=== PATIENT | male | born 1930 | race Caucasian/White ===

== ENCOUNTER → 2020-04-07 | Outpatient (CLI) | payer MEDICARE ==
[~2020-04-07] MED LIST: ACET325 PO; ATEN25 PO; ATEN50 PO; BISA10S PR; CEFD300 PO; CHOL10002; Coumadin5 MG; DAILY MULTIPLE1 EACH; ELIQUIS2.5 MG PO; HYDACE10B PO; LISI20 PO; LORA10ER PO; METF500 PO; METF500C; MULVITMIND PO; NEBI10; Salmon Oil 1,01 EACH; Salmon Oil 1,01 EACH PO; Saw Palmetto80 MG; TAMS.4ER PO
[2020-04-07 12:28] LABS: BASOPHILS ABSOLUTE AUTO 0.05 K/mm3 (0.00-0.23); BASOPHILS PERCENT AUTO 1 % (0-2); EOSINOPHILS PERCENT AUTO 3 % (0-6); Hematocrit 47.3 % (37.0-53.0); Hemoglobin 14.4 g/dL (13.5-17.5); IMMATURE GRAN ABSOLUTE AUTO 0.01 K/mm3 (0.00-0.10); IMMATURE GRAN PERCENT AUTO 0 % (0-1); LYMPHOCYTES ABSOLUTE AUTO 2.81 K/mm3 (0.84-5.20); LYMPHOCYTES PERCENT AUTO 41 % (21-46); MONOCYTES ABSOLUTE AUTO 0.67 K/mm3 (0.16-1.47); MONOCYTES PERCENT AUTO 10 % (4-13); Mean Corpuscular HGB Conc 30.4 g/dL (31.5-36.5); Mean Corpuscular Volume 92 fL (80-100); Mean Platelet Volume 11.1 fL (9.1-12.4); NEUTROPHILS ABSOLUTE AUTO 3.12 K/mm3 (1.96-9.15); NEUTROPHILS PERCENT AUTO 46 % (41-73); Platelet Count 150 K/mm3 (150-400); RDW Coefficient Variation 13.4 % (11.7-14.2); RDW Standard Deviation 45.5 fL (35.1-46.3); Red Blood Cell Count 5.14 M/mm3 (4.30-5.90); White Blood Cell Count 6.86 K/mm3 (4.00-11.30)
[2020-04-07 12:37] LABS: Albumin, Blood 3.8 g/dL (3.4-5.0); Albumin/Globulin Ratio 0.8 (0.8-1.8); Bilirubin, Total 1.1 mg/dL (0.1-1.0); Creatinine, Blood 1.87 mg/dL (0.60-1.20); Globulin, Blood 4.7 g/dL (2.2-4.0); Potassium, Blood 5.4 mmol/L (3.5-5.5); Total Protein, Blood 8.5 g/dL (6.4-8.2)
== END | disposition home or self-care (01) ==
LOC: LAB SHORT 12:22 → LAB 12:22
PROVIDERS: Chiropractor
DX: K62.5 Hemorrhage of anus and rectum (principal)
CPT/HCPCS: 80053; 85025

== ENCOUNTER 2020-07-23 11:09 | Inpatient (IN) | payer MEDICARE ==
[~2020-07-23] VITALS: Ht 170.2 cm; Wt 98.3 kg
[~2020-07-23 11:09] MED LIST changes: -ACET325 PO; -ATEN50 PO; -BISA10S PR; -CEFD300 PO; -HYDACE10B PO; -LISI20 PO; -LORA10ER PO; -TAMS.4ER PO
[2020-07-23 11:42] LABS: BASOPHILS ABSOLUTE AUTO 0.06 K/mm3 (0.00-0.23); BASOPHILS PERCENT AUTO 1 % (0-2); EOSINOPHILS ABSOLUTE AUTO 0.19 K/mm3 (0.00-0.68); EOSINOPHILS PERCENT AUTO 2 % (0-6); Hematocrit 42.5 % (37.0-53.0); Hemoglobin 12.7 g/dL (13.5-17.5); IMMATURE GRAN ABSOLUTE AUTO 0.02 K/mm3 (0.00-0.10); IMMATURE GRAN PERCENT AUTO 0 % (0-1); LYMPHOCYTES ABSOLUTE AUTO 4.85 K/mm3 (0.84-5.20); LYMPHOCYTES PERCENT AUTO 54 % (21-46); MONOCYTES ABSOLUTE AUTO 0.82 K/mm3 (0.16-1.47); MONOCYTES PERCENT AUTO 9 % (4-13); Mean Corpuscular HGB 28.1 pg (26.0-34.0); Mean Corpuscular HGB Conc 29.9 g/dL (31.5-36.5); Mean Corpuscular Volume 94 fL (80-100); NEUTROPHILS ABSOLUTE AUTO 3.12 K/mm3 (1.96-9.15); NEUTROPHILS PERCENT AUTO 34 % (41-73); Platelet Count 152 K/mm3 (150-400); RDW Coefficient Variation 13.2 % (11.7-14.2); RDW Standard Deviation 45.9 fL (35.1-46.3); Red Blood Cell Count 4.52 M/mm3 (4.30-5.90); White Blood Cell Count 9.06 K/mm3 (4.00-11.30)
[2020-07-23 11:48] LABS: Alanine Aminotransfer (ALT/SGP 19 U/L (12-78); Albumin, Blood 3.1 g/dL (3.4-5.0); Albumin/Globulin Ratio 0.7 (0.8-1.8); Alk Phos 94 U/L (50-136); Anion Gap 2 mmol/L (6-16); Aspartate Aminotrans (AST/SGOT 15 U/L (12-37); Bilirubin, Total 0.5 mg/dL (0.1-1.0); Blood Urea Nitrogen 28 mg/dL (8-24); Bun/Creatinine Ratio 15.5 (12.0-20.0); CO2, Blood 29 mmol/L (21-32); Calcium, Blood 8.3 mg/dL (8.5-10.1); Chloride, Blood 112 mmol/L (98-108); Creatinine, Blood 1.81 mg/dL (0.60-1.20); Globulin, Blood 4.3 g/dL (2.2-4.0); Glomerular Filtration Rate 38 (60-); Glucose, Blood 97 mg/dL (70-99); Potassium, Blood 5.3 mmol/L (3.5-5.5); Sodium, Blood 143 mmol/L (136-145); Total Protein, Blood 7.4 g/dL (6.4-8.2); Troponin I <0.015 ng/mL (0.000-0.040)
[2020-07-23] MEDS ORDERED: LISI20 PO (12:18)
[2020-07-23] MEDS ORDERED: ATEN25 PO (12:19)
[2020-07-23] MEDS ORDERED: LORA10ER PO (12:19)
[2020-07-23] MEDS ORDERED: ATEN50 PO (14:07)
--- NOTE | 2020-07-23 19:22 | NUR ---
ADMIT NOTE PT NEW ADMIT TO UNIT ABOUT 1700 FROM ER. LEFT HIP FX FROM [facility] AT HOME. PATIENT ALERT AND SOMEWHAT CONFUSED ABOUT SITUATION BUT IS COOPERATIVE AND PLEASANT. DAUGHTER, AUBREY, PRESENT AT ADMIT TO PROVIDE MEDICAL HISTORY. LEFT HIP IS PAINFUL AND PATIENT RESTING IN BED. TOLERATING SIPS OF CLEARS AT THIS TIME. PLAN FOR SURGICAL REPAIR 07/24 OR 07/25. HX OF STROKE, TIA, AND AFIB. [place]. REPORT GIVEN TO LIFESTYLE COORDINATOR RN.
--- NOTE | 2020-07-23 20:33 | NUR ---
PAIN PT GIVEN 0.5MG DILAUDID FOR PAIN PRIOR TO REPOSITIONING AND APPLYING ATTENDS. PT BECAME IRRITATED W/ STAFF INSISTING THAT WE LEAVE HIM ALONE. PT EDUCATED ON IMPORTANCE OF KEEPING SKIN C/D/I AND FREE OF ANY STOOL/URINE. PT CONTINUED TO REFUSE CARE. PT EDUCATION REINFORCED AND PT CLEANED UP W/ DRY ATTENDS NOW IN PLACE. PT APPEARED TO BE COMFORTABLE WHEN FINISHED, BED IN LOW POSITION, ALARM ON FOR SAFETY. PT STATED HE WAS FINE R/T CURRENT PAIN AT REASSESSMENT. WILL CTM AND REINFORCE EDUCATION ON SKIN BREAKDOWN.
[2020-07-24 04:56] LABS: BASOPHILS ABSOLUTE AUTO 0.06 K/mm3 (0.00-0.23); BASOPHILS PERCENT AUTO 1 % (0-2); EOSINOPHILS PERCENT AUTO 1 % (0-6); Hemoglobin 13.5 g/dL (13.5-17.5); IMMATURE GRAN ABSOLUTE AUTO 0.04 K/mm3 (0.00-0.10); IMMATURE GRAN PERCENT AUTO 0 % (0-1); LYMPHOCYTES ABSOLUTE AUTO 1.69 K/mm3 (0.84-5.20); LYMPHOCYTES PERCENT AUTO 17 % (21-46); MONOCYTES ABSOLUTE AUTO 1.44 K/mm3 (0.16-1.47); MONOCYTES PERCENT AUTO 14 % (4-13); Mean Corpuscular HGB 28.3 pg (26.0-34.0); Mean Corpuscular Volume 94 fL (80-100); Mean Platelet Volume 10.7 fL (9.1-12.4); NEUTROPHILS PERCENT AUTO 67 % (41-73); Platelet Count 145 K/mm3 (150-400); RDW Coefficient Variation 13.4 % (11.7-14.2); RDW Standard Deviation 46.9 fL (35.1-46.3); Red Blood Cell Count 4.77 M/mm3 (4.30-5.90); White Blood Cell Count 10.23 K/mm3 (4.00-11.30)
[2020-07-24 05:16] LABS: Bun/Creatinine Ratio 15.8 (12.0-20.0); Calcium, Blood 8.5 mg/dL (8.5-10.1); Creatinine, Blood 1.9 mg/dL (0.60-1.20); Potassium, Blood 5.5 mmol/L (3.5-5.5)
--- NOTE | 2020-07-24 05:46 | NUR ---
SHIFT SUMMARY S/P L HIP FX, ALERT AND PLEASANTLY CONFUSED THOUGH IS RESISTANT TO CARE THAT INVOLVES ANY REPOSITIONING, REPEATED EDUCATION GIVEN ON THE IMPORTANCE OF KEEPING SKIN C/D/I AND CLEAR OF ANY URINE/STOOL, PAIN MANAGED PER EMAR, CARDIAC DIET ORDERED THOUGH PT HAS NOT HAD ANY INTAKE TONIGHT AND HAD POOR INTAKE DURING DAY SHIFT YESTERDAY PER REPORT. ON BEDREST PENDING SURGERY, NO ACUTE EVENTS THIS SHIFT. CALL LIGHT IN REACH, WILL CTM AND REPORT TO DAY RN.
[2020-07-24 09:16] LABS: Source, Urine Catheter
[2020-07-24 09:27] LABS: Appearance, Urine Clear (Clear); Bilirubin, Urine Neg (Neg); Blood, Urine 1+ (Neg); Color, Urine Yellow (P-Yellow); Glucose Qualitative, Urine Neg (Neg); Ketones, Urine Neg (Neg); Leukocyte Esterase, Urine Neg (Neg); Nitrite, Urine Neg (Neg); Protein, Urine Neg (Neg); Specific Gravity, Urine 1.015 (1.003-1.022); Urobilinogen, Urine NORM (Normal)
[2020-07-24 09:36] LABS: Bacteria Not Seen /hpf; Squamous Epithelial Cells Not Seen /hpf (Few); White Blood Cells, Urine 0-2 /hpf (0-5)
--- NOTE | 2020-07-24 18:08 | NUR ---
PT HAS BEEN STABLE THIS SHIFT. BP HIGH AT TIMES, RESTARTED ON HOME MED. DAUGHTER HAS BEEN AT BEDSIDE. PT CONFUSED. PLAN FOR SURGERY TOMORROW. NPO AFTER MIDNIGHT. CRANDALL PLACED THIS AM. UA SENT, NO CULTURE INDICATED. PT DRINKING FLUIDS WELL. PAIN CONTROLLED WITH PRN MEDS. PT HAS POOR APPETITE. PT ON 3L O2. CT AND XRAY ORDERED FOR AM. DAUGHTER WORKING ON GETTING PT COVID VACCINE CARD.
--- NOTE | 2020-07-25 03:28 | NUR ---
PT CONFUSED AT BASELINED. VSS ON 3L O2. PAIN MANAGED WELL W. IV DILAUDID. CRANDALL IN PLACE AND PATENT. REPOSTIONED Q2HR. NPO AT MIDNIGHT . PT FULLY VACCINATED, PHOTOCOPY OF VACCINATION CARD IN CHART. SLEEPING B/W CARE.
--- NOTE | 2020-07-25 09:34 | NUR ---
PT LEFT FOR PROCEDURE WITH DAY SURGERY RN, DTR AT BEDSIDE TO SIGN CONSENT. PT LEFT ON 3L OXYGEN VIA NC.
--- NOTE | 2020-07-25 10:46 | NUR ---
07/25/20 Nicola6 Kelli Mejia PT ENTERED OR WITH CRANDALL CATHETER
--- NOTE | 2020-07-25 13:06 | NUR ---
COUGHED AND WIGGLED TOES WHEN ASKED TO . PULLS AT GOWN, BLANKETS LINES . REORIENT HIM TO PLACE AND THAT HE BROKE HIS HIP AND IS AT HOSP HE SAYS " OH" AND THEN ASKS ME AGAIN SAME QUESTION . BIOX ON 10 L OXIMIZER GOES BETWEEN 88 TO 92 % HOSPITALIST AND DR REED AWARE NO NEW ORDER AT THIS TIME. NO ACUTE DISTRESS RESP E/U PLEASANT
--- NOTE | 2020-07-25 13:35 | NUR ---
SPOKE WITH NURSING PLUMBING HARDWARE ASSEMBLER ABOUT HIGHER LEVEL OF CARE BED DR REED HAS REQUESTED . WE HAVE NOTIFIED HOSPITALIST AND HE IS AWARE TO COME TO PACU TO SEE PT
--- NOTE | 2020-07-25 14:09 | NUR ---
REPORT GIVEN TO MARQUITA IN PCU. BELONGINGS SENT TO UNIT. INTRODUCED MARQUITA TO PT'S DAUGHTER AUBREY.
--- NOTE | 2020-07-25 15:23 | NUR ---
TRANSFER FROM PACU/SURGICAL PT WAS TRANSFERRED FROM PACU AND SURGICAL UNIT AFTER HAVING A HIP FX REPAIR. PT HAD INCREASED O2 NEEDS AFTER ANETHESIA. PT CAME TO PCU ON 10L VIA OXYMIZER BUT HAS SINCE BEEN TITRATED TO 9L. PT HAS AQUACEL DRESSING IN PLACE ON THE LEFT HIP, IT IS C/D/I. PT REPORTS VERY MILD PAIN AT THIS TIME. PT HAS CRANDALL PATENT AND DRAINING. PT IS VISITING WITH HIS FAMILY CURRENTLY. VS STABLE
--- NOTE | 2020-07-25 18:05 | NUR ---
SHIFT SUMMARY PT ARRIVED TO PCU FOLLOWING A HIP FX REPAIR. PT IS CONFUSED, WHICH IS HIS BASELINE. PT CAME TOP PCU DUE TO INCREASED O2 REQUIREMENT; PT HAS BEEN TITRATED DOWN AND IS NOW ON 4L VIA OXIMYZER. PT REPORTED PAIN IN THE LEFT HIP AND WAS MEDICATED PER EMAR AND ICE WAS APPLIED. PT IS RESTING IN BED AT THIS TIME
[2020-07-26 04:16] LABS: BASOPHILS ABSOLUTE AUTO 0.01 K/mm3 (0.00-0.23); BASOPHILS PERCENT AUTO 0 % (0-2); EOSINOPHILS PERCENT AUTO 0 % (0-6); Hematocrit 32.9 % (37.0-53.0); Hemoglobin 9.8 g/dL (13.5-17.5); IMMATURE GRAN ABSOLUTE AUTO 0.06 K/mm3 (0.00-0.10); IMMATURE GRAN PERCENT AUTO 1 % (0-1); LYMPHOCYTES ABSOLUTE AUTO 0.76 K/mm3 (0.84-5.20); LYMPHOCYTES PERCENT AUTO 6 % (21-46); MONOCYTES ABSOLUTE AUTO 0.84 K/mm3 (0.16-1.47); MONOCYTES PERCENT AUTO 7 % (4-13); Mean Corpuscular HGB 27.9 pg (26.0-34.0); Mean Corpuscular HGB Conc 29.8 g/dL (31.5-36.5); Mean Corpuscular Volume 94 fL (80-100); Mean Platelet Volume 10.9 fL (9.1-12.4); NEUTROPHILS ABSOLUTE AUTO 10.32 K/mm3 (1.96-9.15); NEUTROPHILS PERCENT AUTO 86 % (41-73); Platelet Count 84 K/mm3 (150-400); RDW Coefficient Variation 13.2 % (11.7-14.2); RDW Standard Deviation 45.1 fL (35.1-46.3); Red Blood Cell Count 3.51 M/mm3 (4.30-5.90); White Blood Cell Count 11.99 K/mm3 (4.00-11.30)
--- NOTE | 2020-07-26 05:38 | NUR ---
SHIFT SUMMARY PATIENT IS A PLESANTLY CONFUSED MAN WHO IS [place]. A&OX2-3. FOLLOWS COMMANDS. PAIN TO LEFT HIP WITH MOVEMENT BUT OTHERWISE TOLERABLE. GOOD SENSATION, PULSE, COLOR AND MOVEMENT TO BLE. SITE TO LEFT HIP C/D/I. ATTEMPTED Q2H TURNS BUT PATIENT WOULD SCREAM IN PAIN SO OPTED FOR TILTING. VSS. AFIB IN 60'S ON THE MONITOR ALL SHIFT. NO CP. WEANED O2 TO 1L OXYMIZER. NO SOB. CRANDALL IN PLACE DRAINING TO GRAVITY. NO CONCERNS AT THIS TIME. WILL CONTINUE TO MONITOR UNTIL REPORT GIVEN TO HENRI BENITEZ.
--- NOTE | 2020-07-26 11:02 | NUR ---
CRANDALL DC'D TODAY AT APPROXIMATELY 1050. PT TOLERATED WELL, 16ML NS REMOVED FROM THE BALLOON, 350ML URINE EMPTIED FROM THE CATHETER
--- NOTE | 2020-07-26 11:34 | NUR ---
PHYSICAL THERAPY, PT WAS ABLE TO WORK WITH PHYSICAL THERAPY TODAY. PT WAS TAUGHT ABOUT HIP PRECAUTIONS AND WAS GIVEN PAPER REMINDERS WELL. PT IS A 2 PERSON MAX WITH WALKER AND GAIT BELT FOR TRANSFER. PT IS ON 2L O2 VIA NC, HIS SATURATION DROPPED WITH ACTIVITY BUT HE RECOVERED WELL WITH 5L O2 FOR A FEW MINUTES AND THEN WAS ABLE TO TITRATE BACK DOWN TO 2L.
--- NOTE | 2020-07-26 17:20 | NUR ---
UPDATE 07/26/20 1708: PER CHART REVIEW WITH DR. MADRID, PT. LIKELY TO DISCHARGE WITHIN THE NEXT 24-72 HOURS. PT RECOMMENDING SNF. FAMILY AGREEABLE PER RN IN PCU. PAPERWORK FAXED TO [facility] AND PHONE CALL TO [facility] FOR APPROVAL/ACCEPTANCE. IF ACCEPTED TO SNF, WE WILL NEED A PRIOR AUTH FROM INSURANCE. I GAVE [facility] UTILIZATION [facility]PART[facility] KNOW THAT PRIOR AUTH WOULD BE NEEDED. PER [facility] ADMISSIONS THEY HAVE RECEIVED QUITE A FEW REQUESTS AND ACCEPTANCE WOULD NOT BE LIKELY THIS EVENING. WILL FOLLOW-UP TOMORROW MORNING.
--- NOTE | 2020-07-26 18:31 | NUR ---
SHIFT SUMMARY PT HAS BEEN INCREASINGLY CONFUSED DUE TO PAIN MEDICATIONS ON BOARD WITH HIS HX OF DEMENTIA. PT HAS BEEN HAVING VISUAL AND AUDITORY HALLUCINATIONS, HE CONTINUALLY PULLS OFF HIS TELE AND OXYGEN TUBING AND NEEDS FREQUENT REDIRECTION. PT WAS ABLE TO WORK WITH PHYSICAL THERAPY TODAY AND SPENT THE AFTERNOON IN THE CHAIR. PT'S CRANDALL CATHETER WAS REMOVED TODAY, PT TOLERATED IT WELL. PT IS FINISHING DINNER THEN IS READY TO RETURN TO BED. PT'S STATUS WAS CHANGED TO SURGICAL WITH TELE DUE TO HIS HX OF AFIB. PT HAS MAINTAINED OXYGEN SATURATION ABOVE 92% WITH 2L VIA NC.
[2020-07-27 05:03] LABS: BASOPHILS ABSOLUTE AUTO 0.01 K/mm3 (0.00-0.23); BASOPHILS PERCENT AUTO 0 % (0-2); EOSINOPHILS ABSOLUTE AUTO 0.04 K/mm3 (0.00-0.68); EOSINOPHILS PERCENT AUTO 0 % (0-6); Hemoglobin 9.3 g/dL (13.5-17.5); IMMATURE GRAN ABSOLUTE AUTO 0.05 K/mm3 (0.00-0.10); IMMATURE GRAN PERCENT AUTO 0 % (0-1); LYMPHOCYTES ABSOLUTE AUTO 1.18 K/mm3 (0.84-5.20); LYMPHOCYTES PERCENT AUTO 10 % (21-46); MONOCYTES PERCENT AUTO 12 % (4-13); Mean Corpuscular HGB 28.5 pg (26.0-34.0); Mean Corpuscular Volume 92 fL (80-100); Mean Platelet Volume 11.6 fL (9.1-12.4); NEUTROPHILS ABSOLUTE AUTO 9.33 K/mm3 (1.96-9.15); NEUTROPHILS PERCENT AUTO 77 % (41-73); Platelet Count 111 K/mm3 (150-400); RDW Coefficient Variation 13.2 % (11.7-14.2); RDW Standard Deviation 44.9 fL (35.1-46.3); Red Blood Cell Count 3.26 M/mm3 (4.30-5.90); White Blood Cell Count 12.11 K/mm3 (4.00-11.30)
[2020-07-27 05:23] LABS: Bun/Creatinine Ratio 28.2 (12.0-20.0); Creatinine, Blood 2.06 mg/dL (0.60-1.20); Potassium, Blood 5.8 mmol/L (3.5-5.5)
--- NOTE | 2020-07-27 05:44 | NUR ---
SHIFT SUMMARY PATIENT IS ALERT AND ORIENTED TO SELF ONLY. FORGETFULL AND PULLING AT CORDS MOST THE NIGHT, NEEDS REDIRECTION. PATIENT URINATING BUT NEEDS TO BE STANDING. PATIENT PULLED OFF AQUACEL DRESSING, NEW ONE APPLIED, SMALL AMOUNT OF BLOOD ON DRESSING. 02 SATS 94% ON 2L VIA NC. VSS, NO ACUTE CHANGES. REPOSITIONED Q2 HOURS. CALL LIGHT IN REACH, BED ALARM ON.
--- NOTE | 2020-07-27 16:34 | NUR ---
Update 07/27/2021 1609: Prior authorization completed this afternoon for pt. auth. [id number]. Pt. has remained on [address] Boogie being ordering a work-up to determine if need for oxygen at time of discharge. Goal to discharge pt. tomorrow am. if pt. is appropriate. Will arrange transport if indicated. Pt. will also need COVID test.
--- NOTE | 2020-07-27 17:51 | NUR ---
PT PULLED OUT HIS IV AT 1100; PT RECEIVED BED BATH AND WAS INCONTINENT OF URINE 2X AND CONTINENT 1X; PT RECEIVED PO ANALGESIC RX PER APR 2X FOR REPORTS OF HIP PAIN; TELEMETRY ELECTRODES REPLACED 2X FOR PT REMOVAL; PT RECEIVED NEW 20G PIV IN L AC AT 1338; PT HAD XRAYS TAKEN IN RADIOLOGY DEPT; PT STARTED ON FUROSEMIDE PER APR; PT REMAINS ORIENTED TO SELF ONLY; PT TRANSFERRED ASSIST X2 WITH GAIT BELT AND WALKER TO RECLINER; PT DENIES ADDITIONAL CONCERNS AT THIS TIME
[2020-07-28 04:22] LABS: BASOPHILS ABSOLUTE AUTO 0.05 K/mm3 (0.00-0.23); BASOPHILS PERCENT AUTO 0 % (0-2); EOSINOPHILS ABSOLUTE AUTO 0.22 K/mm3 (0.00-0.68); EOSINOPHILS PERCENT AUTO 2 % (0-6); Hematocrit 33.7 % (37.0-53.0); Hemoglobin 10.5 g/dL (13.5-17.5); IMMATURE GRAN ABSOLUTE AUTO 0.08 K/mm3 (0.00-0.10); IMMATURE GRAN PERCENT AUTO 1 % (0-1); LYMPHOCYTES ABSOLUTE AUTO 1.04 K/mm3 (0.84-5.20); LYMPHOCYTES PERCENT AUTO 9 % (21-46); MONOCYTES ABSOLUTE AUTO 1.45 K/mm3 (0.16-1.47); MONOCYTES PERCENT AUTO 12 % (4-13); Mean Corpuscular HGB 28.5 pg (26.0-34.0); Mean Corpuscular HGB Conc 31.2 g/dL (31.5-36.5); Mean Corpuscular Volume 92 fL (80-100); Mean Platelet Volume 11.2 fL (9.1-12.4); NEUTROPHILS ABSOLUTE AUTO 9.06 K/mm3 (1.96-9.15); NEUTROPHILS PERCENT AUTO 76 % (41-73); Platelet Count 157 K/mm3 (150-400); RDW Coefficient Variation 13.5 % (11.7-14.2); RDW Standard Deviation 44.7 fL (35.1-46.3); Red Blood Cell Count 3.68 M/mm3 (4.30-5.90)
[2020-07-28 04:45] LABS: Bun/Creatinine Ratio 26.8 (12.0-20.0); Calcium, Blood 8.2 mg/dL (8.5-10.1); Creatinine, Blood 2.2 mg/dL (0.60-1.20); Potassium, Blood 5.2 mmol/L (3.5-5.5)
--- NOTE | 2020-07-28 05:38 | NUR ---
SHIFT SUMMARY PATIENT FOUND TO BE A MOSTLY PLESANTLY CONFUSED MAN WHO IS ORIENTED TO SELF ONLY. FREQUENTLY FIDGETTY, REMOVING CLOTHES AND TELEMETRY. ONLY A COUPLE MIN MEMORY. VSS. AFIB ON THE MONITOR IN THE 60'S. HYDRALAZINE GIVEN X1 FOR SBP>160 WITH GOOD RELIEF. TROUBLE WITH PAIN CONTROL WITH BREAKTHROUGH PAIN BETWEEN NORCO SO MD AGREED TO ADD FENTANYL Q3H PRN FOR THIS. PAIN AT TOLERABLE LEVEL SINCE THEN. WAS ABLE TO WEAN HIS 2LNC TO ROOM AIR SATING LOW 90'S. INCONTINENT OF BOTH AND 2BM'S DURING SHIFT. Q2H TURNS CONTINUE. IV FLUIDS INFUSING PER ORDER. SITE TO LEFT HIP C/D/I. NO ACUTE CONCERNS AT THIS TIME. MONITORING CONTINUES UNTIL CARE ENDORSED TO DAYSHIFT RN.
--- NOTE | 2020-07-28 15:49 | NUR ---
PT ON ROOM AIR TOLERATING WELL, WORKED WITH PT/OT. PT HYPERTENSIVE THIS SHIFT, DISCUSSED WITH DR. MADRID AND HYDRALAZINE GIVEN PER EMAR. PT COMPLAINS OF PAIN IN BACK, MEDICATED PER EMAR. NO OTHE ACUTE EVENTS THIS SHIFT. REPORT GIVEN TO LUANN BENITEZ ON SURGICAL.
--- NOTE | 2020-07-28 16:28 | NUR ---
PATIENT WAS TRANSFERRED FROM PCU TO SURGICAL AT 1620 TODAY 07/28/20. PATIENT IS ONLY ORIENTED TO SELF. HE IS CURRENTLY LAYING IN BED SNORING WITH EVEN/EQUAL RESPIRATIONS. LEFT HIP DRESSING IS C/D/I. HE IS ABLE TO WIGGLE TOES WHEN ASKED. CALL LIGHT WITHIN REACH. BED ALARM ON SINCE HE IS PLEASANTLY CONFUSED AT TIMES.
--- NOTE | 2020-07-28 16:40 | NUR ---
Update 07/28/20: Per chart review with Dr. Boogie this am, pt. C/O increased pain over night. Pain management adjusted. Pt. also had an increase in confusion, potentially cause by adjustments in pain medications. Dr. Boogie would like to continue to monitor the pt. and order a work-up for abodminal pain. Notified [facility] admissions of updates. Also contacted patient's daughter to give her updates. She states that she will be back in town tomorrow and will bring patient his clothes. Prior auth should be good for 72 hours for SNF placement.
--- NOTE | 2020-07-28 19:00 | NUR ---
RECEIVED REPORT AND ASSUMED CARE OF PT. HE IS LYING QUIETLY IN BED WITH EVEN, UNLABORED RESPRIATIONS. BED ALARM ON. [facility].
--- NOTE | 2020-07-29 05:34 | NUR ---
SHIFT SUMMARY: RON AROUSES TO VOICE, RESPONDS WITH NODS, GRUNTS, AND/OR MOANS. HE CRIES OUT DURING REPOSITIONING. VSS, NO ACUTE EVENTS OVERNIGHT. O2 SATS MAINTAINING ON 2-3 L VIA NC, CONTINUOUS BIOX IN PLACE. HE DOES DESATURATE DURING SLEEP ORA, OCCASIONAL APNEIC EPISODES NOTED. BLADDER SCAN X 2 FOLLOWED BY STRAIGHT CATH X 2 THIS SHIFT. PRIOR BLADDER OUTPUT POSSIBLY OVERFLOW/STRESS INCONTINENCE, ATTENDS IN PLACE. HE IS TOLERATING PO INTAKE WELL. HE IS LYING IN BED WITH THE CALL LIGHT IN REACH. WILL REPORT TO DAY SHIFT RN.
[2020-07-29 07:48] LABS: Bun/Creatinine Ratio 25.5 (12.0-20.0); Creatinine, Blood 2.71 mg/dL (0.60-1.20); Potassium, Blood 5.2 mmol/L (3.5-5.5)
[2020-07-29 10:30] LABS: Source, Urine Catheter
[2020-07-29 10:38] LABS: Appearance, Urine Clear (Clear); Bilirubin, Urine Neg (Neg); Blood, Urine 5+ (Neg); Color, Urine Yellow (P-Yellow); Glucose Qualitative, Urine Neg (Neg); Ketones, Urine Neg (Neg); Leukocyte Esterase, Urine Neg (Neg); Nitrite, Urine Neg (Neg); Protein, Urine 2+ (Neg); Urobilinogen, Urine NORM (Normal)
[2020-07-29 10:48] LABS: Red Blood Cells, Urine 50-100 /hpf (0-2); White Blood Cells, Urine 0-2 /hpf (0-5)
[2020-07-29 10:49] LABS: Bacteria Not Seen /hpf; Squamous Epithelial Cells Rare /hpf (Few)
--- NOTE | 2020-07-29 14:54 | NUR ---
SHIFT SUMMARY: POD 3 LEFT KAREN HIP REPLACEMENT PATIENT IS ALERT AND ORIENTED X1-2. HE SEEMS TO BE MORE ORIENTED THAN THIS MORNING. VS ARE WNL AND IS ON 3L OXYGEN ON NC. PATIENT HAS NORCO AND TYLENOL FOR PAIN MANAGEMENT WHICH HE DENIES NEEDING EITHER AT THIS TIME. THE LEFT HIP AQUACEL IS C/D/I. HE IS ABLE TO WIGGLE FINGERS AND TOES WHEN ASKED. DENIES ANY NUMBNESS OR TINGLING. PATIENT IS A 2-3 PERSON SBA WITH FWW AND GAIT BELT. HE IS DRINKING SMALL AMOUNTS OF FLUIDS. HE DOES HAVE A CRANDALL PLACED THAT IS PATENT WITH NO KINKS IN TUBING. CALL LIGHT WITHIN REACH. TAB ALARM IS PLACED SINCE HE CAN BE CONFUSED AT TIMES. FAMILY IS IN THE ROOM. THE PLAN IS TO BE PLACED IN A SNF WHEN ACCEPTABLE FOR DISCHARGE.
[2020-07-30 05:18] LABS: Bun/Creatinine Ratio 31.4 (12.0-20.0); Calcium, Blood 8.1 mg/dL (8.5-10.1); Creatinine, Blood 1.94 mg/dL (0.60-1.20); Potassium, Blood 5.2 mmol/L (3.5-5.5)
--- NOTE | 2020-07-30 05:38 | NUR ---
PATIENT ALERT AND ORIENTED. VSS ON 3L O2. PAIN MANAGED WELL W/ TYLENOL. REPOSIONED TOLERATED. CRANDALL IN PLACE AND PATENT. USING CALL LIGHT TO MAKE NEEDS KNOWN.
--- NOTE | 2020-07-30 07:44 | NUR ---
PT WAKES TO VERBAL AND PHYSICAL STIMULI PT STATED HE IS THIRSTY HELPED PT TO DRINK SOME WATER REPOSISTIONED IN THE BED HOB ELEV
--- NOTE | 2020-07-30 11:30 | NUR ---
pt oob in recliner watching tv po tylenol given worked with physical therapy awaiting snf placement
--- NOTE | 2020-07-30 11:47 | NUR ---
Update 07/30/20: Pt. appropriate for discharge. [facility] has accepted pt. Prior auth and additional required paperwork faxed to [facility] admissions. STAT COVID ordered. Transportation will be arranged. Nurse caring for pt. in room notified. We will contact daughter to update her regarding patient's condition and pending discharge. Update 07/29/20: Per chart review with Dr. Boogie, pt. not quite ready for discharge at this time due to need for pain management and he remains confused. Ravi cath. inserted this am. Met with the family this afternoon to discuss care and discharge planning.
--- NOTE | 2020-07-30 13:00 | NUR ---
assisted pt to [facility]sc for bm 2 person assist with gait belt
--- NOTE | 2020-07-30 13:18 | NUR ---
07/30/20- PER CHART REVIEW WITH DR. SORENSON, PT WILL BE D/C TO [facility]. TRANSPORTATION IS SET UP FOR [facility] AT 3PM. PT WILL BE D/C WITH CRANDALL CATHETER. -BARBARA
[2020-07-30 13:33] LABS: SARS-Cov-2 (COVID-19) PCR, MMC NEGATIVE (NEGATIVE)
--- NOTE | 2020-07-30 14:13 | NUR ---
pt's visiting with him
--- NOTE | 2020-07-30 15:45 | NUR ---
DR ANDERSON BY TO SEE PT AWAITING TRANSPORT FOR [facility] PT STILL VISITING WITH SPOUSE PO TYLENOL GIVEN
--- NOTE | 2020-07-30 17:25 | NUR ---
[facility] escort with transport to [facility] [place] will call report no acute changes assisted pt again to bsc only [facility]
== END 2020-07-30 17:28 | DRG 521 ==
LOC: ER 11:09 → PCU 15:14 → SURS 15:14 → PCU 07-25 14:31 → SURS 07-28 16:24
PROVIDERS: Family Medicine; Orthopaedic Surgery; Physician Assistant; Student in an Organized Health Care Education/Training Program; ADMIT Internal Medicine
PROC: 0SRS0J9 Replacement of Left Hip Joint, Femoral Surface with Synthetic Substitute, Cemented, Open Approach (ICD-10-PCS; principal; 2020-07-25 07:00)
DX: S72.032A Displaced midcervical fracture of left femur, initial encounter for closed fracture (principal); J96.01 Acute respiratory failure with hypoxia; I13.0 Hypertensive heart and chronic kidney disease with heart failure and stage 1 through stage 4 chronic kidney disease, or unspecified chronic kidney disease; I50.32 Chronic diastolic (congestive) heart failure; Z66 Do not resuscitate; E87.5 Hyperkalemia; R33.9 Retention of urine, unspecified; Z20.822 Contact with and (suspected) exposure to COVID-19; I48.0 Paroxysmal atrial fibrillation; F01.50 Vascular dementia, unspecified severity, without behavioral disturbance, psychotic disturbance, mood disturbance, and anxiety; N18.30 Chronic kidney disease, stage 3 unspecified; J42 Unspecified chronic bronchitis; Z96.651 Presence of right artificial knee joint; Z86.73 Personal history of transient ischemic attack (TIA), and cerebral infarction without residual deficits; Z87.891 Personal history of nicotine dependence; Z79.01 Long term (current) use of anticoagulants; Z79.84 Long term (current) use of oral hypoglycemic drugs; Z79.899 Other long term (current) drug therapy; W18.30XA Fall on same level, unspecified, initial encounter
CPT/HCPCS: 36415; 70450; 71046; 72125; 72170; 73502; 73700; 80048; 80053; 81001; 84484; 85025; 93005; 93010; 94760; 94762; 96374-59; 96375-59; 96376-59; 97110; 97116; 97162; 97166; 97530; 97535; 99285-25; A9270; C1713; C1751; C1776; J0171; J0360; J0690; J0735; J1100; J1170; J1885; J1940; J2370; J2405; J2704; J2795; J3010; J7030; U0004

== ENCOUNTER 2020-08-17 16:33 | Inpatient (IN) | payer MEDICARE ==
[~2020-08-17] VITALS: Ht 182.9 cm; Wt 81.2 kg
[~2020-08-17 16:33] MED LIST changes: +ATEN50 PO; +LISI20 PO; +LORA10ER PO
[2020-08-17 17:16] LABS: BASOPHILS ABSOLUTE AUTO 0.04 K/mm3 (0.00-0.23); BASOPHILS PERCENT AUTO 1 % (0-2); EOSINOPHILS ABSOLUTE AUTO 0.24 K/mm3 (0.00-0.68); EOSINOPHILS PERCENT AUTO 3 % (0-6); Hematocrit 30.1 % (37.0-53.0); Hemoglobin 9.1 g/dL (13.5-17.5); IMMATURE GRAN ABSOLUTE AUTO 0.04 K/mm3 (0.00-0.10); IMMATURE GRAN PERCENT AUTO 1 % (0-1); LYMPHOCYTES ABSOLUTE AUTO 1.41 K/mm3 (0.84-5.20); LYMPHOCYTES PERCENT AUTO 19 % (21-46); MONOCYTES PERCENT AUTO 15 % (4-13); Mean Corpuscular HGB 27.8 pg (26.0-34.0); Mean Corpuscular HGB Conc 30.2 g/dL (31.5-36.5); Mean Corpuscular Volume 92 fL (80-100); Mean Platelet Volume 10.1 fL (9.1-12.4); NEUTROPHILS ABSOLUTE AUTO 4.67 K/mm3 (1.96-9.15); NEUTROPHILS PERCENT AUTO 62 % (41-73); Platelet Count 302 K/mm3 (150-400); RDW Coefficient Variation 13.2 % (11.7-14.2); RDW Standard Deviation 44.3 fL (35.1-46.3); Red Blood Cell Count 3.27 M/mm3 (4.30-5.90)
[2020-08-17 18:01] LABS: Albumin, Blood 2.3 g/dL (3.4-5.0); Albumin/Globulin Ratio 0.4 (0.8-1.8); Bilirubin, Total 0.3 mg/dL (0.1-1.0); Bun/Creatinine Ratio 26.4 (12.0-20.0); Calcium, Blood 8.5 mg/dL (8.5-10.1); Creatinine, Blood 3.18 mg/dL (0.60-1.20); Globulin, Blood 5.3 g/dL (2.2-4.0); Potassium, Blood 6.2 mmol/L (3.5-5.5); Total Protein, Blood 7.6 g/dL (6.4-8.2)
[2020-08-17] MEDS ORDERED: TAMS.4ER PO (22:05)
[2020-08-17] MEDS ORDERED: BISA10S PR (22:06)
[2020-08-17] MEDS ORDERED: HYDACE10B PO (22:07)
[2020-08-17] MEDS ORDERED: ACET325 PO (22:07)
--- NOTE | 2020-08-18 04:13 | NUR ---
SHIFT SUMMARY NEW ADMIT THIS SHIFT. PT O2 SATS STABLE ON RA AND PT DENIES SOB. RECENT LEFT HIP SX. INCISION HEALING AND APPEARS CLEAN AND DRY. PT COMPLAINS OF PAIN TO LEFT HIP WITH REPOSITIONING, BUT TOLERABLE WHEN AT REST. PT HAVING LIQUID STOOL AND IS INCONTINENT OF URINE. ATTENDS CHANGED PRN. IVF INFUSING PER ORDERS. TELE IN PLACE AND PT SB IN THE 50S. POTASSIUM LEVELS TRENDING DOWN, BUT STILL HIGH. PT WITH HX OF DEMENTIA AND IS CONFUSED. COOPERATIVE AT THIS TIME, BUT CALLS OUT FREQUENTLY AND CAN BE DEMANDING AT TIMES. BED ALARM IN PLACE. CALL LIGHT WITHIN REACH.
[2020-08-18 04:20] LABS: Bun/Creatinine Ratio 29.9 (12.0-20.0); Calcium, Blood 8.6 mg/dL (8.5-10.1); Creatinine, Blood 2.41 mg/dL (0.60-1.20); Potassium, Blood 5.5 mmol/L (3.5-5.5)
--- NOTE | 2020-08-18 07:28 | NUR ---
pt req assist to have bm unable to get up to bsc stated he is weak assisted to bed cervantes pt wearing attends no stool but wet
--- NOTE | 2020-08-18 10:56 | NUR ---
CALLED DR SOARES PT VOIDED 200 ML HAD 908 BLADDER SCAN PT HAD STONG ODOR WITH DISCOLORATION CLOUDY CRANDALL CATH PLACED UA SENT PT TO BE GIVEN 2 GR ROCEPEN
[2020-08-18 11:03] LABS: Source, Urine Catheter
[2020-08-18 11:14] LABS: Appearance, Urine Cloudy (Clear); Bilirubin, Urine Neg (Neg); Blood, Urine 3+ (Neg); Color, Urine Yellow (P-Yellow); Glucose Qualitative, Urine Neg (Neg); Ketones, Urine Neg (Neg); Leukocyte Esterase, Urine 3+ (Neg); Nitrite, Urine Neg (Neg); Protein, Urine 3+ (Neg); Specific Gravity, Urine 1.015 (1.003-1.022); Urobilinogen, Urine NORM (Normal)
[2020-08-18 11:57] LABS: Bacteria Many /hpf; Squamous Epithelial Cells Not Seen /hpf (Few); White Blood Cells, Urine TNTC /hpf (0-5)
--- NOTE | 2020-08-18 12:28 | NUR ---
PT RESTING EARLIER NOW AWAKE ASKING ABOUT HIS FAMILY WAS ABLE TO TALK WITH HIS DAUGHTER AUBREY FERRO
--- NOTE | 2020-08-18 14:40 | NUR ---
pt sleeping daughter tino at bedside updated her on pt's cond re valladares cath and change in med cond
--- NOTE | 2020-08-18 16:27 | NUR ---
pt daughter brought him in a burger pt did not eat it nom appeatite
--- NOTE | 2020-08-18 19:10 | NUR ---
pt calling out saying he is cold k pad placed also elev his feet
[2020-08-19 04:10] LABS: BASOPHILS ABSOLUTE AUTO 0.07 K/mm3 (0.00-0.23); BASOPHILS PERCENT AUTO 1 % (0-2); EOSINOPHILS ABSOLUTE AUTO 0.66 K/mm3 (0.00-0.68); EOSINOPHILS PERCENT AUTO 9 % (0-6); Hematocrit 25.7 % (37.0-53.0); Hemoglobin 7.9 g/dL (13.5-17.5); IMMATURE GRAN ABSOLUTE AUTO 0.04 K/mm3 (0.00-0.10); IMMATURE GRAN PERCENT AUTO 1 % (0-1); LYMPHOCYTES ABSOLUTE AUTO 1.69 K/mm3 (0.84-5.20); LYMPHOCYTES PERCENT AUTO 22 % (21-46); MONOCYTES ABSOLUTE AUTO 1.14 K/mm3 (0.16-1.47); MONOCYTES PERCENT AUTO 15 % (4-13); Mean Corpuscular HGB 28.2 pg (26.0-34.0); Mean Corpuscular HGB Conc 30.7 g/dL (31.5-36.5); Mean Corpuscular Volume 92 fL (80-100); Mean Platelet Volume 10.3 fL (9.1-12.4); NEUTROPHILS ABSOLUTE AUTO 4.06 K/mm3 (1.96-9.15); NEUTROPHILS PERCENT AUTO 53 % (41-73); Platelet Count 254 K/mm3 (150-400); RDW Coefficient Variation 13.2 % (11.7-14.2); RDW Standard Deviation 44.2 fL (35.1-46.3); White Blood Cell Count 7.66 K/mm3 (4.00-11.30)
[2020-08-19 05:01] LABS: Bun/Creatinine Ratio 30.3 (12.0-20.0); Calcium, Blood 8.6 mg/dL (8.5-10.1); Creatinine, Blood 1.45 mg/dL (0.60-1.20); Potassium, Blood 5.5 mmol/L (3.5-5.5)
--- NOTE | 2020-08-19 07:30 | NUR ---
RENAL US IN PROGRESS
--- NOTE | 2020-08-19 13:46 | NUR ---
Update 08/19/20: Patient's GFR has improved. Per chart review with Dr. Patterson, pt. not ready for discharge at this time. Updated patients daughter regarding care and condition. We discussed discharge planning as well. Daughter agrees that termite control servicer care would be best for pt. [facility] I contacted [facility] who states that they have no beds available. I requested that she contact me if a best opens up. She agreed. I gave the patient's daughter a list of phone numbers for the [facility] including eligibility and caregiver support. She will check into benefits and we can discuss care further.
--- NOTE | 2020-08-19 15:02 | NUR ---
REPORT GIVEN TO XIMENA PT TRANSFERRING TO 351
--- NOTE | 2020-08-19 15:30 | NUR ---
PT ARRIVED TO ROOM FROM PCU 4 BY BED. DAUGHTER AT BEDSIDE ON ARRIVAL. PT STARTED STATING HE HAD PAIN TO L LEG. MOANING. DAUGHTER REPORTS PT HASN'T HAD AN APPETITE SINCE HIS FALL AND SUBSEQUENT HIP SURGERY FROM FX. DID MANAGE TO GET HIM TO DRINK AN ENSURE JUICE.
--- NOTE | 2020-08-19 17:10 | NUR ---
SHIFT SUMMARY PTS SATS 88% ON RA. O2 REPLACED UP TO 3L/M BY NC TO GET SATS UP TO 95%. PT CONTINUED TO COMPLAIN OF L HIP PAIN WITH TYLENOL PROVIDING NO RELIEF. RECEIVED NEW ORDERS FROM MD. TRIMBLE AND SAYS IT HURTS WHEN TOUCHED IN ANY WAY AND REPORTS FEELING EXTREMELY COLD WITH BLANKETS BEING OFF OR LOWERED.
--- NOTE | 2020-08-19 19:15 | NUR ---
ASSUMED CARE RECEIVED REPORT FROM EMMANUEL SALAZAR. PT RESTING IN BED, IN NAD, RESPS E/U. ON 2L/NC. NO ACUTE NEEDS ASSESSED AT THIS TIME. CALL LIGHT, POSSESSIONS IN REACH, BED IN LOW AND LOCKED POSITION WITH ALARMS ON.
--- NOTE | 2020-08-19 20:50 | NUR ---
SPOKE TO DR. WILL REGARDING PT'S REQUEST FOR MEDICATION TO HELP HIM SLEEP. ORDERS RECEIVED.
--- NOTE | 2020-08-20 04:51 | NUR ---
WOOD CARVER SUMMARY PT ASLEEP, IN NAD. NO ACUTE CHANGES TO REPORT OVERNIGHT, HAS BEEN SLEEPING ON AND OFF T/O NIGHT. VS REVIEWED,WNL. O2 SATS STABLE ON 2L/NC. PAIN MANAGED WITH MEDS PER EMAR, WITH GOOD EFFECT. CRANDALL CATHETER DRAINING EDUARD YELLOW URINE TO GRAVITY W/O DIFFICULTY, PT DENIES URINARY DISCOMFORT. REPOSITIONED IN BED T/O NIGHT, TOLERATED FAIRLY. NO ACUTE NEEDS ASSESSED AT THIS TIME. CALL LIGHT, POSSESSIONS IN REACH, BED IN LOW AND LOCKED POSITION WITH ALARMS ON. WILL CONTINUE TO PROVIDE CARE NEEDED UNTIL REPORT GIVEN TO ONCOMING RN.
[2020-08-20 05:02] LABS: BASOPHILS ABSOLUTE AUTO 0.04 K/mm3 (0.00-0.23); BASOPHILS PERCENT AUTO 1 % (0-2); EOSINOPHILS ABSOLUTE AUTO 0.73 K/mm3 (0.00-0.68); EOSINOPHILS PERCENT AUTO 9 % (0-6); Hematocrit 29.9 % (37.0-53.0); Hemoglobin 8.7 g/dL (13.5-17.5); IMMATURE GRAN ABSOLUTE AUTO 0.08 K/mm3 (0.00-0.10); IMMATURE GRAN PERCENT AUTO 1 % (0-1); LYMPHOCYTES ABSOLUTE AUTO 2.05 K/mm3 (0.84-5.20); LYMPHOCYTES PERCENT AUTO 26 % (21-46); MONOCYTES ABSOLUTE AUTO 1.13 K/mm3 (0.16-1.47); MONOCYTES PERCENT AUTO 14 % (4-13); Mean Corpuscular HGB 27.2 pg (26.0-34.0); Mean Corpuscular HGB Conc 29.1 g/dL (31.5-36.5); Mean Corpuscular Volume 93 fL (80-100); NEUTROPHILS ABSOLUTE AUTO 3.82 K/mm3 (1.96-9.15); NEUTROPHILS PERCENT AUTO 49 % (41-73); Platelet Count 253 K/mm3 (150-400); RDW Coefficient Variation 13.2 % (11.7-14.2); RDW Standard Deviation 45.3 fL (35.1-46.3); White Blood Cell Count 7.85 K/mm3 (4.00-11.30)
[2020-08-20 05:26] LABS: Calcium, Blood 8.5 mg/dL (8.5-10.1); Creatinine, Blood 1.5 mg/dL (0.60-1.20); Potassium, Blood 5.4 mmol/L (3.5-5.5)
--- NOTE | 2020-08-20 13:55 | NUR ---
Update 08/20/20: Per chart review with Dr. Jimenez this am, working towards SNF placement for pt. Then group home memory care. I talked at length with patient's daughter Day this am and arranaged for a discuss between her and the Director of [facility] October. Family would like pt. to return to SNF to complete PT/OT. Pt. info faxed to [facility] admissions for review. Left message for patent's daughter to return call to discuss mirror installer care placement further.
--- NOTE | 2020-08-20 17:43 | NUR ---
PATIENT IS ALERT. ORIENTED TO SELF, FAMILY AND FOLLOWING DIRECTIONS. HE FIGHTS DOING ANYTHING FOR HIMSELF SUCH FEEDING HIMSELF OR BLOWING HIS NOSE BUT WITH A LITTLE ENCOURAGEMENT HE IS ABLE TO FEED HIMSELF, WASH HIS FACE, BLOW HIS NOSE AND MORE. HE WORKED WITH PT/OT TODAY AND AMBULATED TO THE DOOR OF HIS ROOM WITH FWW AND GAITBELT. HE IS 2PA. HE SAT UP IN HIS CHAIR FOR A FEW HOURS THIS SHIFT BEFORE AND AFTER LUNCH. CRANDALL IS IN PLACE AND DRAINING. THE PLAN IS TO DC TO [facility] TOMORROW. WILL CONTINUE TO MONITOR.
[2020-08-20 18:08] LABS: SARS-Cov-2 (COVID-19) PCR, MMC NEGATIVE (NEGATIVE)
--- NOTE | 2020-08-21 04:53 | NUR ---
SHIFT SUMMARY PT PLEASANTLY CONFUSED. OCCASSIONALLY YELLS OUT FOR STAFF. REPORTS PAIN TO LEFT HIP. MEDICATED PER EMAR. CRANDALL CATH PATENT AND DRAINING LIGHT YELLOW URINE. PT UP IN CHAIR AT START OF SHIFT. TRANSFERED TO BED WITH 2 PERSON ASSIST AND FWW. TELEMETRY READING SR IN THE 60'S. PT ON RA AT START OF SHIFT. O2 SATS IN THE MID TO HIGH 80'S. PLACED PT ON 2 L VIA NC. NO ACUTE CHANGES THIS EVENING. VSS. WILL CONTINUE TO MONITOR AND REPORT TO DAY RN.
[2020-08-21 05:32] LABS: BASOPHILS ABSOLUTE AUTO 0.08 K/mm3 (0.00-0.23); BASOPHILS PERCENT AUTO 1 % (0-2); EOSINOPHILS ABSOLUTE AUTO 0.73 K/mm3 (0.00-0.68); EOSINOPHILS PERCENT AUTO 9 % (0-6); Hematocrit 29.6 % (37.0-53.0); Hemoglobin 8.8 g/dL (13.5-17.5); IMMATURE GRAN PERCENT AUTO 1 % (0-1); LYMPHOCYTES ABSOLUTE AUTO 2.42 K/mm3 (0.84-5.20); LYMPHOCYTES PERCENT AUTO 28 % (21-46); MONOCYTES ABSOLUTE AUTO 1.24 K/mm3 (0.16-1.47); MONOCYTES PERCENT AUTO 15 % (4-13); Mean Corpuscular HGB Conc 29.7 g/dL (31.5-36.5); Mean Corpuscular Volume 94 fL (80-100); Mean Platelet Volume 10.1 fL (9.1-12.4); NEUTROPHILS ABSOLUTE AUTO 3.96 K/mm3 (1.96-9.15); NEUTROPHILS PERCENT AUTO 46 % (41-73); NRBC ABSOLUTE 0.02 K/mm3 (0.00-0.02); NRBC Auto 0.2 /100 WBC (0.0-0.2); Platelet Count 235 K/mm3 (150-400); RDW Coefficient Variation 13.2 % (11.7-14.2); RDW Standard Deviation 44.8 fL (35.1-46.3); Red Blood Cell Count 3.14 M/mm3 (4.30-5.90); White Blood Cell Count 8.53 K/mm3 (4.00-11.30)
[2020-08-21 06:01] LABS: Bun/Creatinine Ratio 21.4 (12.0-20.0); Calcium, Blood 8.6 mg/dL (8.5-10.1); Creatinine, Blood 1.45 mg/dL (0.60-1.20); Potassium, Blood 4.9 mmol/L (3.5-5.5)
--- NOTE | 2020-08-21 08:10 | NUR ---
PT PLEASANT, COOP, CONFUSED, ABLE TO TELL ME NAME, . AGE. 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 OUT OF [place]. STATES HAS OF 5 YRS NOW. H/R REG, NO MURMER NOTED. PER TELE S ARLEEN AT 59, WITH PAC'S. NO EVENTS. LUNGS CLEAR T.O. ON 2L 02. RESP EASY, UNLABORED. BT X4 LAST BM NOT KNOWN BY PT. VOIDS TO CRANDALL CATH. DRAINING CLEAR YELLOW FLUID AT THIS TIME. BED IN LOW POSITIION CALL LITE IN REACH. BED ALARM ON FOR SAFETY
--- NOTE | 2020-08-21 14:09 | NUR ---
pt resting, eyes closed, resp easy, unlabored. did not disturb.
[2020-08-21] MEDS ORDERED: CEFD300 PO (16:03)
--- NOTE | 2020-08-21 16:26 | NUR ---
[facility] HERE TO GEAR MILLING MACHINE SET UP OPERATOR PT. CALLED DR NELSON. SHE WILL ARRANGE DISCHARGE IMMED. CALLED [facility] FOR REPORT. GIVEN TO DAY RECEIVING RN. IV PULLED INTACT. TELE REMOVED. DIABETES MANAGER PREPARED DISCHARGE PACKET FOR DISCHARGE. PT [facility]EL[facility] TO DOOR [facility].
== END 2020-08-21 16:20 | DRG 682 ==
LOC: ER 16:33 → PCU 20:08 → MEDS 08-19 15:12
PROVIDERS: Family Medicine; Physician Assistant; ADMIT Internal Medicine
DX: N17.9 Acute kidney failure, unspecified (principal); J96.01 Acute respiratory failure with hypoxia; N39.0 Urinary tract infection, site not specified; I50.32 Chronic diastolic (congestive) heart failure; I13.0 Hypertensive heart and chronic kidney disease with heart failure and stage 1 through stage 4 chronic kidney disease, or unspecified chronic kidney disease; N13.8 Other obstructive and reflux uropathy; E87.5 Hyperkalemia; E86.0 Dehydration; N18.30 Chronic kidney disease, stage 3 unspecified; F03.90 Unspecified dementia, unspecified severity, without behavioral disturbance, psychotic disturbance, mood disturbance, and anxiety; N40.1 Benign prostatic hyperplasia with lower urinary tract symptoms; I48.91 Unspecified atrial fibrillation; Z86.73 Personal history of transient ischemic attack (TIA), and cerebral infarction without residual deficits; Z96.651 Presence of right artificial knee joint; Z79.899 Other long term (current) drug therapy; Z20.822 Contact with and (suspected) exposure to COVID-19
CPT/HCPCS: 36415; 71046; 76770; 80048; 80053; 81001; 84132; 85025; 87077; 87086; 87186; 93005; 93010; 96365; 96366; 96375; 97110; 97116; 97163; 97166; 97530; 99285-25; A9270; J0610; J0696; J1815; J7030; J7120; J7799; U0004